=== PATIENT | male | born 1965 | race Hispanic/Latino ===

== ENCOUNTER 2018-05-10 18:07 | Emergency (ER) | payer OTHER ==
[~2018-05-10] VITALS: Ht 172.7 cm; Wt 95.2 kg
--- OUTSIDE RECORDS SUMMARY | ~2018-05-10 | XMS | Clinical Summary ---
Demographics + + + | Address | [address] [place] [address] | | | [place] [address] | + + + | Home Phone | | + + + | Preferred Language | Unknown | + + + | Marital Status | Single | + + + | Yazdanism Affiliation | Unknown | + + + | Race | Unknown | + + + | Ethnic Group | Unknown | + + + Author + + + | Author | [facility] | + + + | Organization | [facility] | + + + | Address | Unknown | + + + | Phone | Unavailable | + + + Support + + +---------+ + | Name | Relationship | Address | Phone | + + +---------+ + | Corrections,Eastern | ECON | Unknown | | | [place] | | | | + + +---------+ + Care Team Providers + +------+ + | Care Launch Operator Name | Role | Phone | + +------+ + PP | Unavailable | + +------+ + Allergies No Known Allergies Current Medications + + +-------+---------+------+------+-------+ | Prescription | Sig. | Disp. | Refills | Star | End | Statu | | | | | | t | Date | s | | | | | | Date | | | + + +-------+---------+------+------+-------+ | simvastatin | Take 20 mg by mouth | | | | | Activ | | (ZOCOR) 20 MG tablet | nightly. | | | | | e | + + +-------+---------+------+------+-------+ | omeprazole | Take 20 mg by mouth | | | | | Activ | | (PRILOSEC) 20 MG | every morning before | | | | | e | | capsule | breakfast. | | | | | | + + +-------+---------+------+------+-------+ | metFORMIN | Take 500 mg by mouth | | | | | Activ | | (FORTAMET) 500 MG | 2 (two) times daily | | | | | e | | (OSM) 24 hr tablet | with meals. | | | | | | + + +-------+---------+------+------+-------+ | lisinopril | Take 10 mg by mouth | | | | | Activ | | (ZESTRIL) 10 MG | daily. | | | | | e | | tablet | | | | | | | + + +-------+---------+------+------+-------+ | aspirin 81 MG EC | Take 81 mg by mouth | | | | | Activ | | tablet | daily with | | | | | e | | | breakfast. | | | | | | + + +-------+---------+------+------+-------+ | clotrimazole | Apply topically 2 | | | | | Activ | | (LOTRIMIN AF) 1 % | (two) times daily. | | | | | e | | cream | | | | | | | + + +-------+---------+------+------+-------+ Active Problems + + + | Problem | Noted Date | + + + | PVC's (premature ventricular contractions) | 05/05/2014 | + + + Family History + + +------+ + | Medical History | Relation | Name | Comments | + + +------+ + | Lupus | Mother | | | + + +------+ + | Sudden | Mother | | | + + +------+ + + +------+--------+ + | Relation | Name | Status | Comments | + +------+--------+ + | Mother | | | | + +------+--------+ + Social History + +-------+ +--------+------+ | Tobacco Use | Types | Packs/Day | Years | Date | | | | | Used | | + +-------+ +--------+------+ | Former Smoker | | | | | + +-------+ +--------+------+ + + +---------+ + | Alcohol Use | Drinks/We | oz/Week | Comments | | | ek | | | + + +---------+ + | Yes | | | | + + +---------+ + + + + | Sex Assigned at | Date Recorded | | | | + + + | Not on file | | + + + Last Filed Vital Signs + + + + | Vital Sign | Reading | Time Taken | + + + + | Blood Pressure | 130/74 | 06/29/2014 9:25 AM PDT | + + + + | Pulse | 55 | 06/29/2014 9:25 AM PDT | + + + + | Temperature | - | - | + + + + | Respiratory Rate | 20 | 06/29/2014 9:25 AM PDT | + + + + | Oxygen Saturation | 96% | 06/29/2014 9:25 AM PDT | + + + + | Inhaled Oxygen | - | - | | Concentration | | | + + + + | Weight | 94.5 kg (208 lb 6.4 | 06/29/2014 9:25 AM PDT | | | oz) | | + + + + | Height | 172.7 cm (5' 8") | 06/29/2014 9:25 AM PDT | + + + + | Body Mass Index | 31.69 | 06/29/2014 9:25 AM PDT | + + + + Plan of Treatment + + + + + | Health Maintenance | Due Date | Last Done | Comments | + + + + + | Vaccine: | | | | | Dtap/Tdap/Td (1 - | 7 | | | | Tdap) | | | | + + + + + | Vaccine: Zoster (1 | | | | | of 2) | 8 | | | + + + + + | Vaccine: Influenza | | | | | (#1) | 8 | | | + + + + + Results Not on filefrom Last 3 Months Insurance + +--------+ +------+-------+---------+ | Payer | Benefi | Subscriber | Type | Phone | Address | | | t Plan | ID | | | | | | / | | | | | | | Group | | | | | + +--------+ +------+-------+---------+ | [employer] | [employer] | [id number] | | | | | | RECTIO | | | | | | | NAL | | | | | | | HEALTH | | | | | | | | | | | | | | PARTNE | | | | | | | RS | | | | | + +--------+ +------+-------+---------+ + +--------+ +--------+ + + | Guarantor Name | Accoun | Relation to | Date | Phone | Billing Address | | | t Type | Patient | of | | | | | | | | | | + +--------+ +--------+ + + | CORRECTIONS,EASTERN | Correc | Self [birth year] | Home: | [address] | | [place] | [place] | | 1966 | [phone] | [place] [address] | | | | | [phone] | | | | Facili | | | | | | | ty | | | | | + +--------+ +--------+ + +
--- OUTSIDE RECORDS SUMMARY | ~2018-05-10 | XMS | Clinical Summary ---
Demographics + + + | Address | [address] [place] [address] | | | [place] [address] | + + + | Home Phone | | + + + | Preferred Language | Unknown | + + + | Marital Status | Single | + + + | Yarsanism Affiliation | Unknown | + + + | Race | Unknown | + + + | Ethnic Group | Unknown | + + + Author + + + | Author | [facility] | + + + | Organization | [facility] | + + + | Address | Unknown | + + + | Phone | Unavailable | + + + Support + + +---------+ + | Name | Relationship | Address | Phone | + + +---------+ + | Corrections,Eastern | ECON | Unknown | | | [place] | | | | + + +---------+ + Care Team Providers + +------+ + | Care Mainspring Strip Inspector Name | Role | Phone | + [...] +------+-------+---------+ | [employer] | [employer] | [id number] | | | | | | RECTIO [...] Self | [birth year] | Home: | [address] | | [place] | [place] | | 1966 | [phone] | [place] [address] | | | | | | [phone] | | | | Facili | | | | | | | ty | | | | | + +--------+ +--------+ + +
[~2018-05-10 18:07] MED LIST: LISINOPRIL10 MG PO; METFORMIN HCL500 MG PO; NAPROXEN500 MG PO
[2018-05-10] MEDS ORDERED: ASPIRIN81 MG PO (18:18)
[2018-05-10] MEDS ORDERED: LIPITOR20 MG PO (18:18)
[2018-05-10] MEDS ORDERED: OMEPRAZOLE20 MG PO (18:19)
[2018-05-10] MEDS ORDERED: CHLORTHALIDONE25 MG PO (18:19)
[2018-05-10] MEDS ORDERED: DOK250 MG PO (18:19)
--- NOTE | 2018-05-11 07:04 | EKG ---
[facility] [address] [facility] [place], [place] [address] Signed Sinus rhythm with fusion complexes Otherwise normal ECG No previous ECGs available Confirmed by QUE OSORIO MD ([id number]) on 05/11/2018 7:03:53 AM Electronically Signed By: QUE OSORIO MD 05/11/18 0704 PATIENT NAME: IDANIA DE LA GARZA CHASITYMICAH Electrocardiogram DATE OF : 69 PHYSICIAN: QUE OSORIO MD REPORT #: [id number] REPORT IS CONFIDENTIAL AND NOT TO BE RELEASED WITHOUT AUTHORIZATION
== END 2018-05-10 19:19 | disposition home or self-care (01) ==
LOC: ED 18:07
DX: K80.70 Calculus of gallbladder and bile duct without cholecystitis without obstruction (principal); R07.9 Chest pain, unspecified; I10 Essential (primary) hypertension; E11.9 Type 2 diabetes mellitus without complications; E78.5 Hyperlipidemia, unspecified; Z87.891 Personal history of nicotine dependence; Z79.899 Other long term (current) drug therapy; Z79.84 Long term (current) use of oral hypoglycemic drugs; Z79.82 Long term (current) use of aspirin
CPT/HCPCS: 80053; 83690; 84484; 85025; 93005; 93010; 99285-25

== ENCOUNTER 2023-01-17 16:42 | Emergency (ER) | payer OTHER ==
[~2023-01-17] VITALS: Ht 172.7 cm; Wt 99.1 kg
[~2023-01-17 16:42] MED LIST changes: +ADVIL200 M1 PO; +ASPIRIN81 MG PO; +CHLORTHALIDONE25 MG PO; +DOK250 MG PO; +HYDROCODON-ACE1 EA10 PO; +IBUPROFEN600 MG PO; +LIPITOR20 MG PO; +OMEPRAZOLE20 MG PO; +TYLENOL325 MG PO
[2023-01-17 17:02] LABS: BASOPHILS 1.4 % (0-2); EOSINOPHILS 3.1 % (0-6); HEMATOCRIT 43.6 % (35.0-50.0); HEMOGLOBIN 14.4 g/dL (12.0-18.0); LYMPHOCYTES 25.2 % (24-44); MCH 28.9 (27-36); MCV 87.5 fl (81-99); MONOCYTES 8.8 % (0-12); NEUTROPHILS 61.5 % (39-80); PLATELET COUNT 197 K/uL (140-440); RBC 4.98 M/ul (4.3-5.7); RDW 14.1 (10.5-15.0)
[2023-01-17 17:19] LABS: ALBUMIN 2.7 g/dL (3.4-5.0); ALBUMIN/GLOBULIN RATIO 0.63 (1.1-2.4); ALKALINE PHOSPHATASE 93 U/L (46-116); ALT (SGPT) 30 U/L (14-59); ANION GAP 12.5 (7-21); AST (SGOT) 16 U/L (15-37); BILIRUBIN, TOTAL 0.3 ng/dL (0.2-1.0); BUN/CREATININE RATIO 20.58 (6.0-28.6); CALCIUM 8.4 mg/dL (8.5-10.1); CARBON DIOXIDE 25 mmol/L (21-32); CHLORIDE 102 mmol/L (98-107); CREATININE, SERUM 1.36 mg/dL (0.70-1.30); GLOMERULAR FILTRATION RATE,EST 61 mL/min (>60); MAGNESIUM 1.9 mg/dL (1.8-2.4); POTASSIUM 3.5 mmol/L (3.5-5.1); UREA NITROGEN 28 mg/dL (7-18)
[2023-01-17] MEDS ORDERED: NITROGLYCERIN0.4 MG SL (18:24)
[2023-01-17] MEDS ORDERED: LOW DOSE ASPIRI81 MG PO (18:24)
[2023-01-17 18:35] VITALS: BP 128/69
--- NOTE | 2023-01-18 15:21 | EKG ---
[facility] [address] [facility] [place] [address] Signed Normal sinus rhythm Low voltage QRS Inferior-posterior infarct , age undetermined Abnormal ECG When compared with ECG of 10-MAY-2018 18:15, fusion complexes are no longer present Inferior-posterior infarct is now present Confirmed by KAYODE CEJA MD ([id number]) on 01/18/2023 3:21:39 PM Electronically Signed By: KAYODE CEJA 01/18/23 1521 PATIENT NAME: YO DE LA GARZATAYLER SUAREZFLORAMAUREEN Electrocardiogram DATE OF : 69 PHYSICIAN: KAYODE CEJA REPORT #: [id number] REPORT IS CONFIDENTIAL AND NOT TO BE RELEASED WITHOUT AUTHORIZATION
== END 2023-01-17 18:35 | disposition other institution, planned readmission (95) ==
LOC: ED 16:42
PROVIDERS: Emergency Medicine
DX: R07.9 Chest pain, unspecified (principal); I10 Essential (primary) hypertension; E11.9 Type 2 diabetes mellitus without complications; E78.5 Hyperlipidemia, unspecified; Z79.82 Long term (current) use of aspirin; Z79.84 Long term (current) use of oral hypoglycemic drugs; Z79.899 Other long term (current) drug therapy; Z87.891 Personal history of nicotine dependence
CPT/HCPCS: 36415; 71045; 80053; 83735; 84484; 85025; 85379; 93005; 93010